=== PATIENT | female | born 1965 | race Two or more races ===

== ENCOUNTER 2021-12-12 16:55 | Emergency (ER) | payer OTHER ==
[~2021-12-12] VITALS: Ht 167.6 cm; Wt 55.8 kg
[2021-12-12] MEDS ORDERED: CLONAZEPAM1 M1 PO (17:19)
[2021-12-12] MEDS ORDERED: PROSCAR5 MG PO (17:19)
== END 2021-12-12 19:44 | disposition home or self-care (01) ==
LOC: ER 16:55
DX: R10.32 Left lower quadrant pain (principal); Z88.0 Allergy status to penicillin

== ENCOUNTER → 2025-02-25 | Day surgery (SDC) | payer OTHER ==
[~2025-02-25] MED LIST: CLONAZEPAM1 M1 PO; DIPHENHYDRAMINE HCL 50 MG/ML VIAL 1ML IV ONE; MIDAZOLAM HCL 2 MG/2 ML VIAL IV ONE; PROSCAR5 MG PO; fentaNYL CITRATE 50 MCG/ML AMPUL IV PUSH ONE
== END | disposition home or self-care (01) ==
LOC: ADM 02-18 13:00 → AMB-ENDOS 10:00
PROVIDERS: ATTEND Colon & Rectal Surgery
DX: K62.1 Rectal polyp (principal); K62.5 Hemorrhage of anus and rectum